=== PATIENT | female | born 1940 | race Caucasian/White ===

== ENCOUNTER 2018-04-11 11:10 | Emergency (ER) | payer MEDICARE ==
[~2018-04-11] VITALS: Ht 162.6 cm; Wt 57.2 kg
[2018-04-11 11:20] VITALS: BP 152/94
[2018-04-11 13:06] LABS: Basophils # (auto) 0 uL; Basophils % (auto) 0.5 % (0.0-2.0); Eosinophils # (auto) 0.1 uL; Eosinophils % (auto) 1.4 % (0.0-7.0); Hematocrit 44.1 % (36.0-46.0); Lymphocytes # (auto) 1.3 uL; Lymphocytes % (auto) 21.1 % (10.0-50.0); Mean Corpuscular Hemoglobin 32.1 pg (28.0-32.0); Mean Corpuscular Hgb Conc. 33.9 g/dL (32.0-36.0); Mean Corpuscular Volume 94.8 fL (80.0-100.0); Monocytes # (auto) 0.6 uL; Monocytes % (auto) 9.3 % (0.0-12.0); Neutrophils # (auto) 4.2 uL; Neutrophils % (auto) 67.7 % (37.0-80.0); Nucleated Red Blood Cells % 0.1 %; Platelet Count (auto) 252 10^3/uL (140-450); Red Blood Cells 4.65 10^6/uL (4.0-5.20); Red Cell Distribution Width 13.5 % (11.8-14.3); White Blood Cell 6.1 10^3/uL (4.4-10.8)
[2018-04-11 13:26] LABS: Alanine Aminotransferase 24 U/L (13-56); Albumin 4.3 g/dL (3.4-5.0); Anion Gap 7 (5-15); Blood Urea Nitrogen 14 mg/dL (7-18); Calcium 9.3 mg/dL (8.5-10.1); Carbon Dioxide 26 mmol/L (21-32); Chloride 103 mmol/L (98-107); Glucose 95 mg/dL (74-106); Potassium 4.1 mmol/L (3.5-5.1); Sodium 136 mmol/L (136-145)
[2018-04-11 13:31] LABS: Alkaline Phosphatase 50 U/L (45-117); Aspartate Aminotransferase 17 U/L (15-37); BUN/Creatinine Ratio 14.6; Bilirubin, Total 0.4 mg/dL (0.2-1.0); GFR African American > 60 mL/min; GFR Non-African American 60 mL/min; Total Protein 8.2 g/dL (6.4-8.2)
[2018-04-13] MEDS ORDERED: METO25TA62 (06:23)
[2018-04-14] MEDS ORDERED: DRON400T PO (10:34)
[2018-04-14] MEDS ORDERED: APIX5TAB PO (10:34)
== END 2018-04-11 17:20 | disposition left against medical advice (07) ==
LOC: ER 11:12
DX: I34.1 Nonrheumatic mitral (valve) prolapse (principal); I10 Essential (primary) hypertension
CPT/HCPCS: 36415; 71045; 80053; 84443; 84484; 85025; 93005

== ENCOUNTER 2019-09-20 16:45 | Inpatient (IN) | payer MEDICARE ==
[~2019-09-20] VITALS: Ht 162.6 cm; Wt 60.2 kg
[~2019-09-20 16:45] MED LIST: APIX5TAB PO; DRON400T PO; METO25TA93 PO
[2019-09-20 17:54] LABS: Basophils # (auto) 0 10 ^3/uL (0-0.2); Basophils % (auto) 0.5 % (0.0-2.0); Eosinophils # (auto) 0 10 ^3/uL (0-0.8); Eosinophils % (auto) 0.3 % (0.0-7.0); Hematocrit 39.8 % (36.0-46.0); Hemoglobin 13.6 g/dL (12.2-16.2); Lymphocytes # (auto) 0.9 10 ^3/uL (0.4-5.4); Mean Corpuscular Hemoglobin 32.2 pg (28.0-32.0); Mean Corpuscular Hgb Conc. 34.2 g/dL (32.0-36.0); Mean Corpuscular Volume 94.1 fL (80.0-100.0); Monocytes # (auto) 0.6 10 ^3/uL (0-1.3); Monocytes % (auto) 16.7 % (0.0-12.0); Neutrophils # (auto) 1.9 10 ^3/uL (1.6-8.6); Neutrophils % (auto) 55.5 % (37.0-80.0); Platelet Count (auto) 194 10^3/uL (140-450); Red Blood Cells 4.23 10^6/uL (4.0-5.20); Red Cell Distribution Width 13.5 % (11.8-14.3); White Blood Cell 3.4 10^3/uL (4.4-10.8)
[2019-09-20 18:07] LABS: INR 0.96 (0.9-1.15); Partial Thromboplastin Time 25.1 sec (23.64-32.05)
[2019-09-20 18:10] LABS: Albumin 4.3 g/dL (3.4-5.0); Anion Gap 8 (5-15); Blood Urea Nitrogen 11 mg/dL (7-18); Calcium 9.3 mg/dL (8.5-10.1); Carbon Dioxide 24 mmol/L (21-32); Chloride 106 mmol/L (98-107); Glucose 95 mg/dL (74-106); Potassium 4.1 mmol/L (3.5-5.1); Sodium 138 mmol/L (136-145)
[2019-09-20 18:15] LABS: Alanine Aminotransferase 42 U/L (13-56); Alkaline Phosphatase 45 U/L (45-117); Aspartate Aminotransferase 36 U/L (15-37); BUN/Creatinine Ratio 9.2; Bilirubin, Total 0.3 mg/dL (0.2-1.0); GFR African American 57 mL/min; GFR Non-African American 47 mL/min; Lactate Dehydrogenase 165 U/L (84-246)
[2019-09-20] MEDS ORDERED: ENOXAPARIN SOD 60 MG/0.6 ML SYRINGE SC ONE (20:45)
[2019-09-20] MEDS ORDERED: POTASSIUM CHL 20 Meq TABLET PO ONE (21:00)
[2019-09-20] MEDS ORDERED: MORPHINE SULF INJ 2 MG/ML SYRINGE 1ML IV PRN (22:00)
[2019-09-20] MEDS ORDERED: NITROGLYCERIN 0.4 MG SL TAB SL PRN (22:00)
[2019-09-20] MEDS ORDERED: ATORVASTATIN 20 MG TAB PO SCH (22:00)
[2019-09-20] MEDS: APIXABAN 5 MG TAB PO SCH (22:03)
[2019-09-20] MEDS: DRONEDARONE HCL 400 MG TAB PO SCH (22:04)
[2019-09-21] VITALS (8 sets, daily range): BP systolic 103–133; BP diastolic 66–80
[2019-09-21] MEDS: ACETAMINOPHEN 325 MG TAB PO PRN ×2 (02:50→10:56)
[2019-09-21] MEDS ORDERED: DOXYCYCLINE 100MG/250ML 250 ML IV SCH (03:00)
[2019-09-21 06:19] LABS: Basophils # (auto) 0 10 ^3/uL (0-0.2); Basophils % (auto) 0.8 % (0.0-2.0); Eosinophils # (auto) 0 10 ^3/uL (0-0.8); Eosinophils % (auto) 0.7 % (0.0-7.0); Hematocrit 36.7 % (36.0-46.0); Hemoglobin 12.6 g/dL (12.2-16.2); Lymphocytes % (auto) 30.7 % (10.0-50.0); Mean Corpuscular Hemoglobin 32.2 pg (28.0-32.0); Mean Corpuscular Hgb Conc. 34.3 g/dL (32.0-36.0); Mean Corpuscular Volume 93.8 fL (80.0-100.0); Monocytes # (auto) 0.4 10 ^3/uL (0-1.3); Monocytes % (auto) 11.8 % (0.0-12.0); Neutrophils # (auto) 1.9 10 ^3/uL (1.6-8.6); Nucleated Red Blood Cells % 0.1 %; Platelet Count (auto) 170 10^3/uL (140-450); Red Blood Cells 3.92 10^6/uL (4.0-5.20); Red Cell Distribution Width 13.4 % (11.8-14.3); White Blood Cell 3.3 10^3/uL (4.4-10.8)
[2019-09-21 06:37] LABS: Potassium 3.5 mmol/L (3.5-5.1)
[2019-09-21 06:44] LABS: Albumin 3.6 g/dL (3.4-5.0); BUN/Creatinine Ratio 14.1; Bilirubin, Total 0.2 mg/dL (0.2-1.0); Calcium 8.4 mg/dL (8.5-10.1); Total Protein 6.7 g/dL (6.4-8.2)
[2019-09-21] MEDS ORDERED: PROG1CAP2 PO (07:40)
[2019-09-21] MEDS ORDERED: CHOL50007 PO (07:40)
[2019-09-21] MEDS ORDERED: MELA3TAB27 PO (07:40)
[2019-09-21] MEDS ORDERED: PRAS1CAP PO (07:40)
[2019-09-21] MEDS ORDERED: BIOT10CA OR (07:40)
[2019-09-21] MEDS ORDERED: ASPI-407 PO (07:40)
[2019-09-21] MEDS: METOPROLOL SUCCINATE XL 50 MG TAB PO SCH (09:56)
[2019-09-21] MEDS: ASCORBIC ACID 1,000 MG TAB PO SCH (09:58)
[2019-09-21] MEDS: ZINC SULFATE 220mg CAP or TAB PO SCH (09:58)
[2019-09-21] MEDS: CHOLECALCIFEROL (VITD3) 1,000IU=25mCg TAB PO SCH (09:59)
[2019-09-21] MEDS: APIXABAN 5 MG TAB PO SCH ×2 (10:55→22:19)
[2019-09-21] MEDS: DRONEDARONE HCL 400 MG TAB PO SCH ×2 (10:55→22:34)
[2019-09-21] MEDS ORDERED: DexAMETHasone 4 MG TAB PO ONE (13:15)
[2019-09-21] MEDS ORDERED: PANTOPRAZOLE 40 MG TAB PO ONE (13:15)
[2019-09-21] MEDS ORDERED: FUROSEMIDE 20 MG/2 ML VIAL IV ONE (13:15)
[2019-09-21] MEDS ORDERED: POTASSIUM CHL 10 Meq TABLET PO ONE (13:15)
[2019-09-21] MEDS ORDERED: ONDANSETRON HCL 4 MG/2 ML VIAL IV PRN (13:45)
[2019-09-21] MEDS ORDERED: guaiFENesin-DM 100/10mg/5ml SYR PO PRN (14:00)
[2019-09-21] MEDS: ALBUTEROL SULF HFA 90MCG INH 200DOSE IN SCH ×2 (14:00→21:43)
[2019-09-21] MEDS ORDERED: SIMV10TA84 PO (14:47)
[2019-09-21] MEDS ORDERED: [UNRECOGNIZED DRUG - CODE] PO (14:52)
[2019-09-21] MEDS ORDERED: SIMV-8 PO (14:58)
[2019-09-21] MEDS ORDERED: ICOS1CAP PO (14:59)
[2019-09-21] MEDS: DOXYCYCLINE 100 MG TAB/CAP PO SCH ×2 (15:00→22:24)
[2019-09-21] MEDS ORDERED: POM PO (15:10)
[2019-09-21] MEDS: FUROSEMIDE 20 MG/2 ML VIAL IV SCH (17:29)
[2019-09-21] MEDS ORDERED: DexAMETHasone 4 MG TAB PO SCH (22:00)
[2019-09-21] MEDS: POTASSIUM CHL 10 Meq TABLET PO SCH (22:21)
[2019-09-21] MEDS: DexAMETHasone SOD PHOS 4 MG/1ML SDV INJ IV SCH (22:24)
[2019-09-21] MEDS: ATORVASTATIN 20 MG TAB PO SCH (22:25)
[2019-09-22] MEDS: FUROSEMIDE 20 MG/2 ML VIAL IV SCH ×2 (06:06→18:30)
[2019-09-22 06:11] VITALS: BP 117/73
[2019-09-22] MEDS: ALBUTEROL SULF HFA 90MCG INH 200DOSE IN SCH ×3 (06:12→22:02)
[2019-09-22 09:00] VITALS: BP 118/74
[2019-09-22] MEDS: DexAMETHasone SOD PHOS 4 MG/1ML SDV INJ IV SCH ×2 (09:51→22:02)
[2019-09-22] MEDS: DRONEDARONE HCL 400 MG TAB PO SCH ×2 (09:52→22:03)
[2019-09-22] MEDS: APIXABAN 5 MG TAB PO SCH ×2 (09:52→22:02)
[2019-09-22] MEDS: METOPROLOL SUCCINATE XL 50 MG TAB PO SCH (09:52)
[2019-09-22] MEDS: ZINC SULFATE 220mg CAP or TAB PO SCH (09:53)
[2019-09-22] MEDS: ASCORBIC ACID 1,000 MG TAB PO SCH (09:54)
[2019-09-22] MEDS: POTASSIUM CHL 10 Meq TABLET PO SCH ×2 (09:54→22:03)
[2019-09-22] MEDS: CHOLECALCIFEROL (VITD3) 1,000IU=25mCg TAB PO SCH (09:55)
[2019-09-22] MEDS: DOXYCYCLINE 100 MG TAB/CAP PO SCH ×2 (09:55→22:03)
[2019-09-22] MEDS ORDERED: POTASSIUM CHL 10 Meq TABLET PO SCH (10:00)
[2019-09-22] MEDS ORDERED: PANTOPRAZOLE 40 MG TAB PO SCH (10:00)
[2019-09-22] MEDS ORDERED: FUROSEMIDE 20 MG/2 ML VIAL IV SCH (10:00)
[2019-09-22 13:00] VITALS: BP 132/79
[2019-09-22 17:00] VITALS: BP 115/72
[2019-09-22 22:00] VITALS: BP 103/68
[2019-09-22] MEDS: ATORVASTATIN 20 MG TAB PO SCH (22:03)
[2019-09-23 05:00] VITALS: BP 116/75
[2019-09-23] MEDS: FUROSEMIDE 20 MG/2 ML VIAL IV SCH (06:01)
[2019-09-23] MEDS: ALBUTEROL SULF HFA 90MCG INH 200DOSE IN SCH (06:01)
[2019-09-23 06:12] LABS: Basophils # (auto) 0 10 ^3/uL (0-0.2); Basophils % (auto) 0.2 % (0.0-2.0); Eosinophils # (auto) 0 10 ^3/uL (0-0.8); Hematocrit 41.2 % (36.0-46.0); Lymphocytes # (auto) 0.6 10 ^3/uL (0.4-5.4); Lymphocytes % (auto) 9.5 % (10.0-50.0); Mean Corpuscular Hemoglobin 31.8 pg (28.0-32.0); Mean Corpuscular Volume 93.4 fL (80.0-100.0); Monocytes # (auto) 0.3 10 ^3/uL (0-1.3); Monocytes % (auto) 5.2 % (0.0-12.0); Neutrophils # (auto) 5.5 10 ^3/uL (1.6-8.6); Neutrophils % (auto) 85.1 % (37.0-80.0); Platelet Count (auto) 207 10^3/uL (140-450); Red Blood Cells 4.41 10^6/uL (4.0-5.20); Red Cell Distribution Width 13.3 % (11.8-14.3); White Blood Cell 6.5 10^3/uL (4.4-10.8)
[2019-09-23 06:34] LABS: BUN/Creatinine Ratio 21.8; Calcium 8.4 mg/dL (8.5-10.1); Magnesium 2.2 mg/dL (1.6-2.6); Potassium 4.1 mmol/L (3.5-5.1)
[2019-09-23 09:00] VITALS: BP 128/84
[2019-09-23 09:57] VITALS: BP 116/75
== END 2019-09-23 11:00 | disposition home or self-care (01) | DRG 177 ==
LOC: ER 16:45 → TELE 16:46 → TELE-EAST 23:45
PROVIDERS: ADMIT Nurse Practitioner; ATTEND Internal Medicine
DX: U07.1 COVID-19 (principal); J96.01 Acute respiratory failure with hypoxia; N17.0 Acute kidney failure with tubular necrosis; J12.89 Other viral pneumonia; N18.3 Chronic kidney disease, stage 3 (moderate); E87.6 Hypokalemia; I48.0 Paroxysmal atrial fibrillation; E78.5 Hyperlipidemia, unspecified; I12.9 Hypertensive chronic kidney disease with stage 1 through stage 4 chronic kidney disease, or unspecified chronic kidney disease; Z90.49 Acquired absence of other specified parts of digestive tract; Z79.899 Other long term (current) drug therapy
CPT/HCPCS: 36415; 71045; 80048; 80053; 82728; 83605; 83615; 83735; 83880; 84443; 84484; 85025; 85379; 85610; 85730; 86141; 87040; 87070; 87804; 87880; 93005; 94640; 96374; G0378; J1100; J2405

== ENCOUNTER → 2019-10-01 | Emergency (ER) | payer MEDICARE ==
[~2019-10-01] VITALS: Ht 162.6 cm; Wt 52.2 kg
[~2019-10-01] MED LIST changes: +ASPI-407 PO; +BIOT10CA OR; +CHOL50007 PO; +ICOS1CAP PO; +MELA3TAB27 PO; +POM PO; +PRAS1CAP PO; +PROG1CAP2 PO; +SIMV-8 PO; +[UNRECOGNIZED DRUG - CODE] PO
[2019-10-02 03:22] VITALS: BP 119/75
== END | disposition home or self-care (01) ==
LOC: EDUNIT# 17:01 → EDBD 17:44 → ER 17:45
DX: K59.00 Constipation, unspecified (principal); I10 Essential (primary) hypertension; E78.5 Hyperlipidemia, unspecified

== ENCOUNTER 2023-02-22 13:09 | Emergency (ER) | payer MEDICARE ==
[~2023-02-22] VITALS: Ht 157.5 cm; Wt 53.3 kg
[~2023-02-22 13:09] MED LIST changes: -PROG1CAP2 PO; +PROG200C21 PO; -SIMV-8 PO; +SIMV20TA20 PO
[2023-02-22 17:07] LABS: Basophils # (auto) 0 10 ^3/uL (0-0.2); Basophils % (auto) 0.4 % (0.0-2.0); Eosinophils # (auto) 0 10 ^3/uL (0-0.8); Eosinophils % (auto) 0.4 % (0.0-7.0); Hematocrit 43.2 % (36.0-46.0); Hemoglobin 14.3 g/dL (12.2-16.2); Lymphocytes # (auto) 3.1 10 ^3/uL (0.4-5.4); Lymphocytes % (auto) 32.9 % (10.0-50.0); Mean Corpuscular Hemoglobin 31.6 pg (28.0-32.0); Mean Corpuscular Hgb Conc. 33.2 g/dL (32.0-36.0); Mean Corpuscular Volume 95.1 fL (80.0-100.0); Monocytes # (auto) 0.8 10 ^3/uL (0-1.3); Monocytes % (auto) 8.5 % (0.0-12.0); Neutrophils # (auto) 5.4 10 ^3/uL (1.6-8.6); Neutrophils % (auto) 57.8 % (37.0-80.0); Nucleated Red Blood Cells % 0.1 %; Red Blood Cells 4.54 10^6/uL (4.0-5.20); Red Cell Distribution Width 13.5 % (11.8-14.3); White Blood Cell 9.4 10^3/uL (4.4-10.8)
[2023-02-22 17:56] LABS: Alanine Aminotransferase 14 U/L (7-40); Albumin 4.9 g/dL (3.2-4.8); Alkaline Phosphatase 46 U/L (46-116); Anion Gap 10 (5-15); Aspartate Aminotransferase < 8 U/L (13-40); BUN/Creatinine Ratio 13.1 (10.0-20.0); Blood Urea Nitrogen 13 mg/dL (9-23); Carbon Dioxide 23 mmol/L (20-30); Chloride 101 mmol/L (98-107); Glucose 87 mg/dL (74-106); Potassium 4.1 mmol/L (3.5-5.1); Sodium 134 mmol/L (136-145)
[2023-02-22 17:57] LABS: Bilirubin, Total 0.3 mg/dL (0.2-1.0); Total Protein 7.5 g/dL (5.7-8.2)
[2023-02-22] MEDS ORDERED: cefTRIAXone SOD 1,000 MG VL IM ONE (18:00)
[2023-02-22] MEDS ORDERED: DexAMETHasone SOD PHOS 4 MG/1ML SDV INJ IM ONE (18:00)
[2023-02-22] MEDS ORDERED: CLIN300C70 PO (19:16)
[2023-02-22] MEDS ORDERED: FLUT1SPR5 (19:16)
[2023-02-22] MEDS ORDERED: CARB6.5S44 OT (19:16)
[2023-02-22] MEDS ORDERED: LIDOCAINE 1% HCL (LOCAL ANESTH.) INJ 20ML MDV ONE (21:14)
[2023-02-22 21:20] VITALS: BP 115/64; PULSE 81; RESP 18; TEMP 98; O2SAT 96
== END 2023-02-22 21:33 | disposition home or self-care (01) ==
LOC: ER 13:09
DX: H70.93 Unspecified mastoiditis, bilateral (principal); H61.22 Impacted cerumen, left ear; R51.9 Headache, unspecified; J32.9 Chronic sinusitis, unspecified; I10 Essential (primary) hypertension; E78.5 Hyperlipidemia, unspecified; K21.9 Gastro-esophageal reflux disease without esophagitis; Z90.49 Acquired absence of other specified parts of digestive tract; Z79.82 Long term (current) use of aspirin; Z79.2 Long term (current) use of antibiotics; Z79.899 Other long term (current) drug therapy
CPT/HCPCS: 36415; 70450; 70486; 80053; 84484; 85025; 96372; 99285; J0696; J1100; J2001

== ENCOUNTER 2024-02-01 21:08 | Inpatient (IN) | payer MEDICARE ==
[~2024-02-01] VITALS: Ht 162.6 cm; Wt 53.8 kg
[~2024-02-01 21:08] MED LIST changes: +CARB6.5S44 OT; +CLIN1CAP70 PO; +FLUT1SPR5
--- NOTE | 2024-02-01 22:04 | ED.PDOC ---
HPI Comments A 83 year old female presents to the ED with a chief complaint of palpitations onset 4 days. Patient states she began experiencing palpitation 4 days ago and noticed it worsens when she tries to lay down. Patient went to the dentist today, was prescribed Amoxicillin, took 1000 mg around 18:00 and shortly after took Multaq and believes it caused her palpitations to worsen. She has a past medical history of HTN, HLD and A-fib. No other symptoms or modifying factor present at this time. Chief Complaint: Palpitations Time Seen by MD: 21:45 Primary Care Provider: unknown Reviewed Notes: Medications, Allergies Allergies: Coded Allergies: NO KNOWN ALLERGIES (Unverified , 12/30/12) Home Meds Active Scripts Fluticasone Propionate (Nasal) (Flonase Allergy Relief) 50 Mcg/Act Spr, 1 INH NA BID, #1 SPRAY Prov:MARIBEL LILLY INTERMODAL DISPATCHER 02/22/23 Carbamide Peroxide (Debrox) 6.5 % Mary, 6.5 % OT BID for 5 Days, #1 EA Instilled only on the left ear Prov:MARIBEL LILLY INTERMODAL DISPATCHER 02/22/23 Clindamycin Hcl (Clindamycin Hcl) 300 Mg Cap, 1 CAP PO TID for 10 Days, #30 CAP Prov:MARIBEL LILLY INTERMODAL DISPATCHER 02/22/23 Dronedarone Hydrochloride (Multaq) 400 Mg Tab, 400 MG PO BID, #60 TAB Prov:JIMBO ZARAGOZA MD 04/14/18 Apixaban Base (ELIQUIS) 5 Mg Tab, 5 MG PO BID for 30 Days, #60 TAB Prov:JIMBO ZARAGOZA MD 04/14/18 Reported Medications Patients Own Medication (PATIENTS OWN MEDICATION) ., 1.85 MG PO DAILY PTS OWN MED-OBTAIN FROM PT AND SEND TO RX DRUG: BIEST 1.85 MG CAP FREQ: 1.85 MG PO DAILY RX# EXP: DATE DISP: TECH: RPH: 09/21/19 Epa Ethyl Vashti (VASCEPA) 1 Gm Cap, 2 CAP PO BID, CAP 20 Simvastatin (Simvastatin) 20 Mg Tab, 1 TAB PO QPM, #30 TAB 5 Refills 09/21/19 Thyroid (Nature-Throid) 32.5 Mg Tab, 3 TAB PO DAILY, TAB 20 Prasterone (Dhea) (Dhea 25) 25 Mg Cap, 25 MG PO DAILY, CAP 09/21/19 Progesterone Micronized (PROGESTERONE) 200 Mg Cap, 200 MG PO QPM, CAP 09/21/19 Melatonin (KP MELATONIN) 3 Mg Tab, 1 TAB PO QPM, #30 TAB 2 Refills 09/21/19 Biotin (TOLU BIOTIN) 10 Mg Cap, 10 MG OR DAILY, CAP 09/21/19 Cholecalciferol (VITAMIN D3) 5,000 Unit Cap, 5000 UNIT PO DAILY, CAP 09/21/19 Aspirin (GIL ASPIRIN) 325 Mg Tab, 325 MG PO DAILY, TAB 09/21/19 Metoprolol Succinate (Metoprolol Succinate Er) 25 Mg Tab, 25 MG PO HS 04/13/18 Information Source: Patient Mode of Arrival: Ambulatory Severity: Moderate Timing: Days Duration: Since onset Prehospital treatment: None Cardiac Risk Factors: Hyperlipidemia, HTN Associated Signs and Symptoms: Palpitations Past Medical History PAST MEDICAL HISTORY: AFIB, High Lipids, HTN Surgical History: Appendectomy SPINNING MULE TENDER History: Denies all SPINNING MULE TENDER Hx Family History Family History: Reviewed,noncontributory to illness Social History Smoker: Non-Smoker Alcohol: Denies ETOH Use Drugs: Denies Drug Use Lives In: Home Constitutional: denies: chills, diaphoresis, fatigue, fever, malaise, sweats, weakness, others EENTM: denies: blurred vision, double vision, ear bleeding, ear discharge, ear drainage, ear pain, ear ringing, eye pain, eye redness, hearing loss, mouth pain, mouth swelling, nasal discharge, nose bleeding, nose congestion, nose pain, photophobia, tearing, throat pain, throat swelling, voice changes, others Respiratory: denies: cough, hemoptysis, orthopnea, SOB at rest, shortness of breath, SOB with excertion, stridor, wheezing, others Cardiovascular: reports: palpitations; denies: chest pain, dizzy spells, diaphoresis, Dyspnea on exertion, edema, irregular heart beat, left arm pain, lightheadedness, PND, syncope, others Gastrointestinal: denies: abdomen distended, abdominal pain, blood streaked bowels, constipated, diarrhea, dysphagia, difficulty swallowing, hematemesis, melena, nausea, poor appetite, poor fluid intake, rectal bleeding, rectal pain, vomiting, others Genitourinary: denies: abnormal vagina bleeding, burning, dyspareunia, dysuria, flank pain, frequency, hematuria, incontinence, pain, , vagina discharge, urgency, others Neurological: denies: dizziness, fainting, headache, left sided numbness, left sided weakness, numbness, paresthesia, pre-existing deficit, right sided numbness, right sided weakness, seizure, speech problems, tingling, tremors, weakness, others Musculoskeletal: denies: back pain, gout, joint pain, joint swelling, muscle pain, muscle stiffness, neck pain, others Integumetry: denies: bruises, change in color, change in hair/nails, dryness, laceration, lesions, lumps, rash, wounds, others Allergic/Immunocompromised: denies: Difficulty Healing, Frequent Infections, Hives, Itching, others Hematologic/Lymphatic: denies: anemia, blood clots, easy bleeding, easy bruising, swollen glands, others Endocrine: denies: excessive hunger, excessive sweating, excessive thirst, excessive urination, flushing, intolerance to cold, intolerance to heat, unexplained weight gain, unexplained weight loss, others Psychiatric: denies: anxiety, bipolar disorder, depression, hopeless, panic disorder, schizophrenia, sleepless, suicidal, others All Other Systems: Reviewed and Negative Physical Exam General Appearance: No Apparent Distress, Normal HEENT: Normal ENT Inspection, Pharynx Normal, TMs Normal Neck: Full Range of Motion, Non-Tender, Normal, Normal Inspection Respiratory: Chest Non-Tender, Lungs Clear, No Accessory Muscle Use, No Respiratory Distress, Normal Breath Sounds Cardiovascular: No Edema, No JVD, No Murmur, No Gallop, Normal Peripheral Pulses, Regular Rate/Rhythm Breast Exam: Deferred Gastrointestinal: No Organomegaly, Non Tender, No Pulsatile Mass, Normal Bowel Sounds, Soft Genitalia: Deferred Pelvic: Deferred Rectal: Deferred Extremities: No calf tenderness, Normal capillary refill, Normal inspection, Normal range of motion, Non-tender, No pedal edema Musculoskeletal : Apperance: Normal Neurologic: Alert, warehouse helper II-XII nml as Tested, No Motor Deficits, Normal Affect, Normal Mood, No Sensory Deficits Cerebellar Function: Normal Reflexes: Normal Skin: Dry, Normal Color, Warm Lymphatic: No Adenopathy Was a procedure done? Was a procedure done?: No CP Differential Dx Differential Diagnosis: Atrial Dysrhythmia, MAT, PAC's, PVC's Differential Diagnosis: HTN Essential Differential Diagnosis: Myocardial Infarction X-Ray, Labs, Meds, VS Vital Signs Date Time Temp Pulse Resp B/P (MAP) Pulse Ox O2 Delivery O2 Flow Rate FiO2 02/01/24 21:20 98.5 85 18 170/90 (116) 95 02/01/24 21:17 89 Lab Test 02/01/24 22:20 02/01/24 21:26 Range/Units Troponin I High Sensitivity 5 3 L </=34 ng/L White Blood Count 6.1 4.4-10.8 10^3/uL Red Blood Count 3.96 L 4.0-5.20 10^6/uL Hemoglobin 12.8 12.2-16.2 g/dL Hematocrit 37.2 36.0-46.0 % Mean Corpuscular Volume 93.9 80.0-100.0 fL Mean Corpuscular Hemoglobin 32.3 H 28.0-32.0 pg Mean Corpuscular Hemoglobin Concent 34.4 32.0-36.0 g/dL Red Cell Distribution Width 13.3 11.8-14.3 % Platelet Count 215 140-450 10^3/uL Mean Platelet Volume 9.3 6.9-10.8 fL Neutrophils (%) (Auto) 54.7 37.0-80.0 % Lymphocytes (%) (Auto) 31.4 10.0-50.0 % Monocytes (%) (Auto) 10.4 0.0-12.0 % Eosinophils (%) (Auto) 2.8 0.0-7.0 % Basophils (%) (Auto) 0.7 0.0-2.0 % Neutrophils # (Auto) 3.3 1.6-8.6 10 ^3/uL Lymphocytes # (Auto) 1.9 0.4-5.4 10 ^3/uL Monocytes # (Auto) 0.6 0-1.3 10 ^3/uL Eosinophils # (Auto) 0.2 0-0.8 10 ^3/uL Basophils # (Auto) 0 0-0.2 10 ^3/uL Nucleated Red Blood Cells 0.1 % Sodium Level 137 136-145 mmol/L Potassium Level 3.9 3.5-5.1 mmol/L Chloride Level 107 98-107 mmol/L Carbon Dioxide Level 24 20-31 mmol/L Anion Gap 6 5-15 Blood Urea Nitrogen 9 9-23 mg/dL Creatinine 0.75 0.550-1.02 mg/dL Glomerular Filtration Rate Calc 80 >90 mL/min BUN/Creatinine Ratio 12.0 10.0-20.0 Serum Glucose 90 74-106 mg/dL Calcium Level 9.8 8.7-10.4 mg/dL [place] [id number] Ph: [phone] DIAGNOSTIC IMAGING Diagnostic Imaging Report : [id number] Signed PATIENT: PIPPA DALTON ACCT: [id number] UNIT: [id number] : 1940 LOC: ER ROOM / BED: / AGE / SEX: 83 / F ADM STATUS: REG ER SERVICE 58 ORDERING PHYSICIAN: HAROLDO LEWIS MD PROCEDURE(s): CXRP - CHEST PORTABLE REASON: palpitations ORDER NUMBER(s): [id number], ACCESSION NUMBER(s): [id number] CHEST RADIOGRAPH Indication:palpitations Technique: Single frontal view of the chest was obtained Comparison: CHEST PORTABLE on DOS: 09/20/19 FINDINGS: Lines and Tubes: None Lungs: No focal consolidation. Pleura: No effusion. No pneumothorax. Cardiomediastinal contours: Unremarkable Bones: No acute osseous abnormality. IMPRESSION: No acute cardiopulmonary disease. ATED BY: DONNA BELTRAN DO DICTATED DATE/TIME: 02/01/242257 SIGNED BY: DONNA BELTRAN DO SIGNED DATE/TIME: 02/01/242257 CC: Time of 1ST Reevaluation: 22:15 Reevaluation 1ST: Unchanged Patient Education/Counseling: Diagnosis, Treatment, Prognosis Family Education/Counseling: No Family Present Departure 1 Departure Time of Disposition: 23:18 (Patient with worsening palpitations. We will admit patient for further workup.) Impression: Primary Impression: Palpitations Disposition: ADMITTED INPATIENT Admit to: Med Surg Condition: Serious Critical Care Note Critical Care Time?: No Stability Stability form required: No Heart Score Heart Score: Heart Score Response (Comments) Value History Moderate Suspicious 1 EKG Repolarization Disturb 1 Age >65 2 Risk Factors >3 or Hx ASHD 2 Troponin Normal limit 0 Total 6 I personally scribed for HAROLDO LEWIS MD ([email or web address]) on 02/01/24 at 22:04. Electronically submitted by Olga Campos ([email or web address]). I personally scribed for HAROLDO LEWIS MD ([email or web address]) on 02/01/24 at 23:16. Electronically submitted by Olga Campos ([email or web address]). HAROLDO LEWIS MD Feb 01, 2024 22:04
[2024-02-01 22:11] LABS: Basophils # (auto) 0 10 ^3/uL (0-0.2); Basophils % (auto) 0.7 % (0.0-2.0); Eosinophils # (auto) 0.2 10 ^3/uL (0-0.8); Eosinophils % (auto) 2.8 % (0.0-7.0); Hematocrit 37.2 % (36.0-46.0); Hemoglobin 12.8 g/dL (12.2-16.2); Lymphocytes # (auto) 1.9 10 ^3/uL (0.4-5.4); Lymphocytes % (auto) 31.4 % (10.0-50.0); Mean Corpuscular Hemoglobin 32.3 pg (28.0-32.0); Mean Corpuscular Hgb Conc. 34.4 g/dL (32.0-36.0); Mean Corpuscular Volume 93.9 fL (80.0-100.0); Monocytes # (auto) 0.6 10 ^3/uL (0-1.3); Monocytes % (auto) 10.4 % (0.0-12.0); Neutrophils # (auto) 3.3 10 ^3/uL (1.6-8.6); Neutrophils % (auto) 54.7 % (37.0-80.0); Nucleated Red Blood Cells % 0.1 %; Platelet Count (auto) 215 10^3/uL (140-450); Red Blood Cells 3.96 10^6/uL (4.0-5.20); Red Cell Distribution Width 13.3 % (11.8-14.3); White Blood Cell 6.1 10^3/uL (4.4-10.8)
[2024-02-01 22:21] LABS: Chloride 107 mmol/L (98-107); Potassium 3.9 mmol/L (3.5-5.1); Sodium 137 mmol/L (136-145)
[2024-02-01 22:22] LABS: Anion Gap 6 (5-15); Calcium 9.8 mg/dL (8.7-10.4); Carbon Dioxide 24 mmol/L (20-31)
[2024-02-01 22:27] LABS: Blood Urea Nitrogen 9 mg/dL (9-23); Glucose 90 mg/dL (74-106)
--- NOTE | 2024-02-01 23:00 | DVH ---
CHEST RADIOGRAPH Indication:palpitations Technique: Single frontal view of the chest was obtained Comparison: CHEST PORTABLE on DOS: 09/20/19 FINDINGS: Lines and Tubes: None Lungs: No focal consolidation. Pleura: No effusion. No pneumothorax. Cardiomediastinal contours: Unremarkable Bones: No acute osseous abnormality. IMPRESSION: No acute cardiopulmonary disease.
[2024-02-01 23:37] LABS: Urine Bacteria None Seen /hpf (None Seen)
[2024-02-01 23:52] LABS: Urine Blood Negative /uL (Negative); Urine Clarity Clear (Clear); Urine Color Colorless (Yellow); Urine Protein, UAD Negative (Negative); Urine Specific Gravity 1.005 (1.001-1.035); Urine Urobilinogen Normal (Negative); Urine WBC 29 /hpf (0 - 5)
[2024-02-02] MEDS ORDERED: NITROGLYCERIN 0.4 MG SL TAB SL PRN (03:45)
[2024-02-02] MEDS ORDERED: ACETAMINOPHEN 325 MG TAB PO PRN (03:45)
[2024-02-02] MEDS ORDERED: MORPHINE SULFATE INJ 2 MG/ml SYRG IV PRN (03:45)
[2024-02-02] MEDS ORDERED: ONDANSETRON HCL 4 MG/2 ML VIAL IV PRN (03:45)
--- NOTE | 2024-02-02 06:39 | DVHHP2 ---
History of Present Illness Reason for Visit: Palpitations History of Present Illness 83-year-old female presents for evaluation of palpitations. Patient reports a four day history of intermittent palpitations which are more noticeable whenever she tries to lay down. She reports mild shortness for breath. Denies chest pain. No other acute complaints reported. Past Medical History Hypertension, dyslipidemia and atrial fibrillation Past Surgical History Appendectomy Family History Noncontributory Smoke: No ALCOHOL: none Drugs: None Review of Systems Review of Systems Review of systems are currently negative otherwise addressed in HPI. Allergies: Coded Allergies: NO KNOWN ALLERGIES (Unverified , 12/30/12) Medications Current Medications Medications Dose Ordered Sig/Jesus Alberto Route Start Time Stop Time Status Last Admin Dose Admin Apixaban 2.5 mg BID PO 02/02/24 10:00 Metoprolol Succinate 25 mg HS PO 02/02/24 22:00 Atorvastatin Calcium 20 mg HS PO 02/02/24 22:00 Patient Own Medication 400 mg BID PO 02/02/24 10:00 UNV Ondansetron HCl 4 mg Q4HP PRN IV 02/02/24 03:45 Acetaminophen 650 mg Q6HP PRN PO 02/02/24 03:45 Nitroglycerin 0.4 mg Q5MINP PRN SL 02/02/24 03:45 Morphine Sulfate 2 mg Q30M PRN IV 02/02/24 03:45 Exam Vital Signs Vital Signs Date Time Temp Pulse Resp B/P (MAP) Pulse Ox O2 Delivery O2 Flow Rate FiO2 02/02/24 04:00 74 18 127/59 (81) 94 02/02/24 00:00 98.0 98.0 02/01/24 23:00 Room Air* 0 21 Exam Gen: 83-year-old female in no apparent distress Skin: Warm, dry, normal color and texture, no rash. HEENT: Normocephalic atraumatic, mucous membranes moist and pink. Neck: Cervical and supraclavicular nodes normal without enlargement, trachea is midline, thyroid gland is normal without masses. Pulmonary: Clear to auscultation and percussion bilaterally. Cardiac: Regular rate and rhythm. No murmur Abdomen: Soft, nontender, nondistended, bowel sounds present all 4 quadrants, no guarding, no rigidity, no organomegaly. Extremities: No cyanosis, clubbing, no edema Neuro: Cranial nerves II through XII grossly intact, normal affect and speech, no focal motor deficits. Labs/Xrays ORDERING PHYSICIAN: HAROLDO LEWIS MD PROCEDURE(s): CXRP - CHEST PORTABLE REASON: palpitations ORDER NUMBER(s): [id number], ACCESSION NUMBER(s): [id number] CHEST RADIOGRAPH Indication:palpitations Technique: Single frontal view of the chest was obtained Comparison: CHEST PORTABLE on DOS: 09/20/19 FINDINGS: Lines and Tubes: None Lungs: No focal consolidation. Pleura: No effusion. No pneumothorax. Cardiomediastinal contours: Unremarkable Bones: No acute osseous abnormality. IMPRESSION: No acute cardiopulmonary disease. Labs Test 02/02/24 04:45 02/01/24 23:18 02/01/24 22:20 02/01/24 21:26 Range/Units Thyroid Stimulating Hormone (TSH) 4.91 H 0.55-4.78 uIU/mL Urine Color Colorless Yellow Urine Clarity Clear Clear Urine pH 5.0 5.0-9.0 Urine Specific [place] 1.005 1.001-1.035 Urine Protein Negative Negative Urine Ketones Negative Negative Urine Blood Negative Negative /uL Urine Nitrite Negative Negative Urine Bilirubin Negative Negative Urine Urobilinogen Normal Negative mg/dL Urine Leukocyte Esterase 2+ Negative /uL Urine RBC 1 0 - 4 /hpf Urine WBC 29 0 - 5 /hpf Urine Squamous Epithelial Cells Few <5 /hpf Urine Bacteria None seen None Seen /hpf Urine Glucose Normal Normal mg/dL Troponin I High Sensitivity 5 </=34 ng/L White Blood Count 6.1 4.4-10.8 10^3/uL Red Blood Count 3.96 L 4.0-5.20 10^6/uL Hemoglobin 12.8 12.2-16.2 g/dL Hematocrit 37.2 36.0-46.0 % Mean Corpuscular Volume 93.9 80.0-100.0 fL Mean Corpuscular Hemoglobin 32.3 H 28.0-32.0 pg Mean Corpuscular Hemoglobin Concent 34.4 32.0-36.0 g/dL Red Cell Distribution Width 13.3 11.8-14.3 % Platelet Count 215 140-450 10^3/uL Mean Platelet Volume 9.3 6.9-10.8 fL Neutrophils (%) (Auto) 54.7 37.0-80.0 % Lymphocytes (%) (Auto) 31.4 10.0-50.0 % Monocytes (%) (Auto) 10.4 0.0-12.0 % Eosinophils (%) (Auto) 2.8 0.0-7.0 % Basophils (%) (Auto) 0.7 0.0-2.0 % Neutrophils # (Auto) 3.3 1.6-8.6 10 ^3/uL Lymphocytes # (Auto) 1.9 0.4-5.4 10 ^3/uL Monocytes # (Auto) 0.6 0-1.3 10 ^3/uL Eosinophils # (Auto) 0.2 0-0.8 10 ^3/uL Basophils # (Auto) 0 0-0.2 10 ^3/uL Nucleated Red Blood Cells 0.1 % Sodium Level 137 136-145 mmol/L Potassium Level 3.9 3.5-5.1 mmol/L Chloride Level 107 98-107 mmol/L Carbon Dioxide Level 24 20-31 mmol/L Anion Gap 6 5-15 Blood Urea Nitrogen 9 9-23 mg/dL Creatinine 0.75 0.550-1.02 mg/dL Glomerular Filtration Rate Calc 80 >90 mL/min BUN/Creatinine Ratio 12.0 10.0-20.0 Serum Glucose 90 74-106 mg/dL Calcium Level 9.8 8.7-10.4 mg/dL Assessment/Plan Assessment/Plan Assessment Palpitations History of atrial fibrillation Secondary coagulopathy Plan Admit the patient to telemetry to the hospitalist Cardiology consultation Echocardiogram pending Thyroid panel Resume home medications Continue treatment per orders. Plan discussed with: Patient My Orders Orders - DANNY ORTIZ Procedure Category Date Status Time * Cardiology Consult CONS 02/02/24 Transmitted 03:39 Metoprolol Xl PHA 02/02/24 In Process Succinate (Toprol Xl) 22:00 Atorvastatin (Lipitor) PHA 02/02/24 In Process 22:00 (Nf) Multaq PHA 02/02/24 Pending 10:00 Basic Metabolic Panel LAB 02/03/24 Verified 04:00 Admit ADMIT 02/02/24 Transmitted 03:39 Ondansetron Hcl PHA 02/02/24 In Process (Zofran) 03:45 Cardiac DIET 02/02/24 Transmitted Diet-2gna,Lofat,Lochol Breakfast Echo 2d Mode Cardiac US 02/02/24 Logged DOP 03:39 Condition: Fair [facility] 02/02/24 In Process 03:39 Acetaminophen Tablet PHA 02/02/24 In Process (Tylenol Tablet) 03:45 Bedrest With Bathroom [facility] 02/02/24 In Process Privileg 03:39 Nitroglycerin [facility] 02/02/24 In Process Sublingual (Ntrostat 03:45 Morphine Sulfate [facility] 02/02/24 In Process Injection 03:45 Stat Ekg For Chest [facility] 02/02/24 In Process Pain 03:39 Notify Md Of Changes [facility] 02/02/24 In Process From Base 03:39 Assembly Line Driver For [facility] 02/02/24 In Process 24 Hours 03:39 Emergency Dysrhythmia [facility] 02/02/24 In Process Protocol 03:39 Rhythm Strips Once [facility] 02/02/24 In Process Every Shift 03:39 Oxygen By Nasal RT 02/02/24 Transmitted Cannula 03:39 Apixaban (Eliquis) [facility] 02/02/24 In Process 10:00 Date of Service: Feb 02, 2024 Billing Provider: DANNY ORTIZ Common Visit Codes: [id number] INP/OBS CARE (HIGH) DANNY ORTIZ Feb 02, 2024 06:39
[2024-02-02 08:00] VITALS: PULSE 76
--- NOTE | 2024-02-02 09:37 | ECG ---
[facility] Test Date: 2024-02-01 Test Time: 21:17:18 Pat Name: PIPPA DLATON Department: ER Room: 0220T A Gender: F Watch [employer] Edge Grinder: IDRIS : 1940 Requested By: HAROLDO LEWIS Order Number: [id number] Reading MD: Jadiel Chan Measurements Intervals [place] Rate: 89 P: 0 NH: 0 QRS: 15 QRSD: 71 T: 38 QT: 385 QTc: 469 Interpretive Statements Atrial flutter Abnormal R-wave progression, early transition Electronically Signed On 02-03-2024 12:40:59 PST by Jadiel Chan Please click the below link to view image of tracing.
[2024-02-02] MEDS ORDERED: CYAN500T39 PO (10:03)
[2024-02-02] MEDS ORDERED: ASPI1TAB20 PO (10:03)
[2024-02-02] MEDS ORDERED: GABA-1308 PO (10:03)
[2024-02-02] MEDS ORDERED: PANT40TA2 PO (10:03)
[2024-02-02] MEDS ORDERED: VITA80005 PO (10:03)
[2024-02-02] MEDS ORDERED: SIMV20TA20 PO (10:03)
[2024-02-02] MEDS ORDERED: CHL4PW PO (10:03)
[2024-02-02] MEDS ORDERED: TEST1.62 TD (10:03)
[2024-02-02] MEDS ORDERED: METO25TA93 PO (10:03)
[2024-02-02] MEDS ORDERED: SERT50TA PO (10:03)
[2024-02-02] MEDS ORDERED: MENA100T PO (10:03)
[2024-02-02] MEDS ORDERED: CHOL500033 PO (10:03)
[2024-02-02] MEDS ORDERED: THYR30TA PO (10:03)
[2024-02-02 10:06] VITALS: BP 132/68; PULSE 78; RESP 17; TEMP 97.9; O2SAT 95
[2024-02-02] MEDS: DRONEDARONE HCL 400 MG TAB PO SCH (11:23)
[2024-02-02] MEDS: APIXABAN 2.5 MG TAB PO SCH (11:23)
--- NOTE | 2024-02-02 12:14 | DVHINCON2 ---
Date of service: Feb 03, 2024 History of Present Illness 83 yo F office pt of [facility] with pAF admitted for afib rvr. pt is now SR. she felt bad with mouth infection x 2 days and noticed rapid pulse. Past Medical History reviewed Family History: Alcoholism G8 MOTHER, Onset:Childhood G8 BROTHER, Onset:15's - 20 Arthritis G8 FATHER, Onset:60 years & older Asthma 19 CHILD, Onset:Childhood Cardiovascular disease Cerebrovascular accident (CVA) G8 FATHER, Onset:Unknown Ischemic heart disease Grandmother Allergies: Coded Allergies: NO KNOWN ALLERGIES (Unverified , 12/30/12) Home Meds Active Scripts Fluticasone Propionate (Nasal) (Flonase Allergy Relief) 50 Mcg/Act Spr, 1 INH NA BID, #1 SPRAY Prov:MARIBEL LILLY Q ENGAGEMENT LEAD 02/22/23 Carbamide Peroxide (Debrox) 6.5 % Mary, 6.5 % OT BID for 5 Days, #1 EA Instilled only on the left ear Prov:MARIBEL LILLY Q ENGAGEMENT LEAD 02/22/23 Clindamycin Hcl (Clindamycin Hcl) 300 Mg Cap, 1 CAP PO TID for 10 Days, #30 CAP Prov:MARIBEL LILLY Q ENGAGEMENT LEAD 02/22/23 Dronedarone Hydrochloride (Multaq) 400 Mg Tab, 400 MG PO BID, #60 TAB Prov:JIMBO ZARAGOZA MD 04/14/18 Apixaban Base (ELIQUIS) 5 Mg Tab, 5 MG PO BID for 30 Days, #60 TAB Prov:JIMBO ZARAGOZA MD 04/14/18 Reported Medications Cyanocobalamin (Vitamin B12) 500 Mcg Tab, 500 MCG PO DAILY, TAB 02/02/24 Vitamin A (Vitamin A) 8,000 Unit Cap, 08177 MCG PO DAILY, CAP 02/02/24 Menatetrenone (Menaquinone-4) (Vitamin K2) 100 Mcg Tab, 500 MCG PO DAILY, TAB 02/02/24 Testosterone (ANDROGEL PUMP) 1.62 % Gel, 2 % TD QWEEKLY, GEL 02/02/24 Cholecalciferol (Vitamin D-3) 5,000 Unit Cap, 10942 UNIT PO DAILY, CAP 02/02/24 Thyroid ([place] Thyroid) 30 Mg Tab, 1 TAB PO TID, #30 TAB 5 Refills 02/02/24 Pantoprazole Sodium Sesquihydr (Protonix) 40 Mg Tab, 40 MG PO PRN, #30 TAB 02/02/24 Aspirin (Aspir-81) 81 Mg Tab, 1 TAB PO DAILY, #30 TAB 5 Refills 02/02/24 Gabapentin (Gabapentin) 100 Mg Cap, 100 MG PO HS for 30 Days, MG 02/02/24 Metoprolol Succinate (Metoprolol Succinate Er) 25 Mg Tab, 17.5 MG PO DAILY, #30 TAB 5 Refills 02/02/24 Simvastatin (Simvastatin) 20 Mg Tab, 0.05 MG PO DAILY for 30 Days 02/02/24 Cholestyramine (QUESTRAN POWDER) 4 Gm Pw, 4 GM PO TID, POW 02/02/24 Sertraline Hcl (Zoloft) 50 Mg Tab, 1 TAB PO DAILY, #30 TAB 2 Refills 02/02/24 Prasterone (Dhea) (Dhea 25) 25 Mg Cap, 25 MG PO DAILY, CAP 09/21/19 Progesterone Micronized (PROGESTERONE) 200 Mg Cap, 200 MG PO QPM, CAP 09/21/19 Melatonin (KP MELATONIN) 3 Mg Tab, 1 TAB PO QPM, #30 TAB 2 Refills 09/21/19 Biotin (TOLU BIOTIN) 10 Mg Cap, 10 MG OR DAILY, CAP 09/21/19 Discontinued Reported Medications Patients Own Medication (PATIENTS OWN MEDICATION) ., 1.85 MG PO DAILY PTS OWN MED-OBTAIN FROM PT AND SEND TO RX DRUG: BIEST 1.85 MG CAP FREQ: 1.85 MG PO DAILY RX# EXP: DATE DISP: TECH: RPH: 09/21/19 Epa Ethyl Vashti (VASCEPA) 1 Gm Cap, 2 CAP PO BID, CAP 09/21/19 Simvastatin (Simvastatin) 20 Mg Tab, 1 TAB PO QPM, #30 TAB 5 Refills 09/21/19 Thyroid (Nature-Throid) 32.5 Mg Tab, 3 TAB PO DAILY, TAB 09/21/19 Cholecalciferol (VITAMIN D3) 5,000 Unit Cap, 5000 UNIT PO DAILY, CAP 09/21/19 Aspirin (GIL ASPIRIN) 325 Mg Tab, 325 MG PO DAILY, TAB 09/21/19 Metoprolol Succinate (Metoprolol Succinate Er) 25 Mg Tab, 25 MG PO HS 04/13/18 Current Medications Current Medications Medications (Trade) Dose Ordered Sig/Jesus Alberto Route PRN Reason Start Time Stop Time Status Last Admin Apixaban (Eliquis) 2.5 mg BID PO 02/02/24 10:00 02/02/24 11:23 Metoprolol Succinate (Toprol Xl) 25 mg HS PO 02/02/24 22:00 Atorvastatin Calcium (Lipitor) 20 mg HS PO 02/02/24 22:00 Dronedarone (MulTAQ) 400 mg BID PO 02/02/24 10:00 02/02/24 11:23 Ondansetron HCl (Zofran) 4 mg Q4HP PRN IV NAUSEA / VOMITING 02/02/24 03:45 Acetaminophen (Tylenol Tablet) 650 mg Q6HP PRN PO PAIN SCALE 1-3 OR TEMP>100.4 02/02/24 03:45 Nitroglycerin (Ntrostat Sublingual) 0.4 mg Q5MINP PRN SL FOR CHEST PAIN 02/02/24 03:45 Morphine Sulfate 2 mg Q30M PRN IV FOR CHEST PAIN 02/02/24 03:45 Review of Systems 10 pt ros otherwise negative Vital Signs Vital Signs Date Time Temp Pulse Resp B/P (MAP) Pulse Ox O2 Delivery O2 Flow Rate FiO2 02/02/24 10:06 97.9 78 17 132/68 (89) 95 97.9 02/01/24 23:00 Room Air* 0 21 Physical Exam nad s1 s2 rrr ctab soft nt/nd no edema Labs/Diagnostic Data Labs Test 02/02/24 04:45 02/01/24 23:18 02/01/24 22:20 02/01/24 21:26 Range/Units Thyroid Stimulating Hormone (TSH) 4.91 H 0.55-4.78 uIU/mL Urine Color Colorless Yellow Urine Clarity Clear Clear Urine pH 5.0 5.0-9.0 Urine Specific [place] 1.005 1.001-1.035 Urine Protein Negative Negative Urine Ketones Negative Negative Urine Blood Negative Negative /uL Urine Nitrite Negative Negative Urine Bilirubin Negative Negative Urine Urobilinogen Normal Negative mg/dL Urine Leukocyte Esterase 2+ Negative /uL Urine RBC 1 0 - 4 /hpf Urine WBC 29 0 - 5 /hpf Urine Squamous Epithelial Cells Few <5 /hpf Urine Bacteria None seen None Seen /hpf Urine Glucose Normal Normal mg/dL Troponin I High Sensitivity 5 </=34 ng/L White Blood Count 6.1 4.4-10.8 10^3/uL Red Blood Count 3.96 L 4.0-5.20 10^6/uL Hemoglobin 12.8 12.2-16.2 g/dL Hematocrit 37.2 36.0-46.0 % Mean Corpuscular Volume 93.9 80.0-100.0 fL Mean Corpuscular Hemoglobin 32.3 H 28.0-32.0 pg Mean Corpuscular Hemoglobin Concent 34.4 32.0-36.0 g/dL Red Cell Distribution Width 13.3 11.8-14.3 % Platelet Count 215 140-450 10^3/uL Mean Platelet Volume 9.3 6.9-10.8 fL Neutrophils (%) (Auto) 54.7 37.0-80.0 % Lymphocytes (%) (Auto) 31.4 10.0-50.0 % Monocytes (%) (Auto) 10.4 0.0-12.0 % Eosinophils (%) (Auto) 2.8 0.0-7.0 % Basophils (%) (Auto) 0.7 0.0-2.0 % Neutrophils # (Auto) 3.3 1.6-8.6 10 ^3/uL Lymphocytes # (Auto) 1.9 0.4-5.4 10 ^3/uL Monocytes # (Auto) 0.6 0-1.3 10 ^3/uL Eosinophils # (Auto) 0.2 0-0.8 10 ^3/uL Basophils # (Auto) 0 0-0.2 10 ^3/uL Nucleated Red Blood Cells 0.1 % Sodium Level 137 136-145 mmol/L Potassium Level 3.9 3.5-5.1 mmol/L Chloride Level 107 98-107 mmol/L Carbon Dioxide Level 24 20-31 mmol/L Anion Gap 6 5-15 Blood Urea Nitrogen 9 9-23 mg/dL Creatinine 0.75 0.550-1.02 mg/dL Glomerular Filtration Rate Calc 80 >90 mL/min BUN/Creatinine Ratio 12.0 10.0-20.0 Serum Glucose 90 74-106 mg/dL Calcium Level 9.8 8.7-10.4 mg/dL Assessment pAF htn HL Plan/Recommendation restart doac, agree with eliquis 2.5 mg cont multaq cont BB outpt holter after dc normal lvef on echo Plan discussed with: Patient NANCY HOLCOMB MD Feb 02, 2024 12:14
[2024-02-02] MEDS: INFLUENZA TRIVALENT 2024-2025 0.5 ML INJ IM ONE (12:15)
[2024-02-02] MEDS: PNEUMOCOCCAL VACC POLYS 25 MCG/0.5 ML VIAL IM ONE (12:15)
[2024-02-02 13:00] VITALS: BP 127/49; PULSE 63; RESP 16; TEMP 98.1; O2SAT 93
[2024-02-02 17:00] VITALS: BP 126/59; PULSE 81; RESP 16; TEMP 97.9; O2SAT 95
[2024-02-02 20:00] VITALS: PULSE 73; PULSE 79; RESP 18; O2SAT 95
[2024-02-02 21:00] VITALS: BP 139/66; PULSE 61; RESP 16; TEMP 97.9; O2SAT 94
[2024-02-02] MEDS: ATORVASTATIN 20 MG TAB PO SCH (21:35)
[2024-02-02] MEDS: METOPROLOL SUCCINATE XL 50 MG TAB PO SCH (21:40)
[2024-02-03] VITALS (7 sets, daily range): BP systolic 116–147; BP diastolic 58–82; PULSE 58–82; RESP 15–18; TEMP 97.4–98.2; O2SAT 93–96
[2024-02-03 07:13] LABS: Chloride 107 mmol/L (98-107); Sodium 137 mmol/L (136-145)
[2024-02-03 07:14] LABS: Anion Gap 7 (5-15); Calcium 9.5 mg/dL (8.7-10.4); Carbon Dioxide 23 mmol/L (20-31)
[2024-02-03 07:19] LABS: BUN/Creatinine Ratio 10.8 (10.0-20.0); Blood Urea Nitrogen 8 mg/dL (9-23); Glucose 99 mg/dL (74-106)
[2024-02-03 08:06] LABS: Thyroxine (T4) 7.6 ug/dL (4.5-12.0)
[2024-02-03 09:02] LABS: Hepatitis B Surface Antigen Negative (Negative)
[2024-02-03 09:07] LABS: Free Thyroxine Index 1.7 (1.2-4.9)
[2024-02-03 09:24] LABS: Hepatitis C Antibody Negative (Negative)
--- NOTE | 2024-02-03 11:10 | DVHPN2 ---
Objective Vitals Vital Signs Date Time Temp Pulse Resp B/P (MAP) Pulse Ox O2 Delivery O2 Flow Rate FiO2 02/03/24 09:00 97.6 82 17 116/75 (89) 96 97.6 02/02/24 20:00 Room Air* 0 21 Intake/Output Intake and Output 02/03/24 07:00 Intake Total 750 ml Balance 750 ml Intake Oral 750 ml # Voids 4 # Bowel Movements 4 Medications Current Medications Medications Dose Ordered Sig/Jesus Alberto Route Start Time Stop Time Status Last Admin Dose Admin Apixaban 2.5 mg BID PO 02/02/24 10:00 02/03/24 10:21 2.5 MG Metoprolol Succinate 25 mg HS PO 02/02/24 22:00 02/02/24 21:40 25 MG Atorvastatin Calcium 20 mg HS PO 02/02/24 22:00 02/02/24 21:35 20 MG Dronedarone 400 mg BID PO 02/02/24 10:00 02/03/24 10:21 400 MG Ondansetron HCl 4 mg Q4HP PRN IV 02/02/24 03:45 Acetaminophen 650 mg Q6HP PRN PO 02/02/24 03:45 Nitroglycerin 0.4 mg Q5MINP PRN SL 02/02/24 03:45 Morphine Sulfate 2 mg Q30M PRN IV 02/02/24 03:45 Laboratory Results Laboratory Tests 02/01/24 21:26 02/03/24 06:10 Chemistry Test 02/03/24 06:10 Calcium Level 9.5 mg/dL (8.7-10.4) Urinalysis Test 02/01/24 23:18 Urine Color Colorless (Yellow) Urine Clarity Clear (Clear) Urine pH 5.0 (5.0-9.0) Urine Specific [place] 1.005 (1.001-1.035) Urine Protein Negative (Negative) Urine Ketones Negative (Negative) Urine Blood Negative /uL (Negative) Urine Nitrite Negative (Negative) Urine Bilirubin Negative (Negative) Urine Urobilinogen Normal mg/dL (Negative) Urine Leukocyte Esterase 2+ /uL (Negative) Urine RBC 1 /hpf (0 - 4) Urine WBC 29 /hpf (0 - 5) Urine Squamous Epithelial Cells Few /hpf (<5) Urine Bacteria None seen /hpf (None Seen) Urine Glucose Normal mg/dL (Normal) VANNESSA MAHARAJ MD Feb 03, 2024 11:10
--- NOTE | 2024-02-03 16:26 | DVHSR ---
APPROVED REPORT EXAM: Two-dimensional and M-mode echocardiogram with Doppler and color Doppler. Blood Pressure: 120/69 mmHg INDICATION Palpitations RISK FACTORS Height: 64, Weight: 117 DIMENSIONS LVDd (3.8-5.7cm)LA (2D)4.2 (1.9-4.0cm)Aortic Root (2.0-3.7cm) EF (%) 63.0 (55-70%)Rt. Atrium3.3 (1.9-4.0cm)Asc. Aorta cm Mitral Valve MitralMitral Stenosis E wave0.74m/sMV Mean GR.mmHg A wave0.87m/sMV Peak GR.mmHg E/A ratio0.92D MVAcm2 DECEL [id number] 1/2 [id number] IVRTmsDop MVA1.98cm2 Aortic Valve Aortic ValveAortic Stenosis V11.05m/Suraj Mean GR.3mmHg V21.29m/Suraj Peak GR.7mmHg AI P 1/2 Qqhw683.35ms Other Information Technically limited study due to patient has breast implants. Conclusion lvef 60% by visual assessment nromal rv function left atrium enlarged
[2024-02-03] MEDS: THYROID 60 MG TAB PO SCH (22:03)
[2024-02-04 01:00] VITALS: BP 141/68; PULSE 74; RESP 18; TEMP 97.5; O2SAT 95
[2024-02-04 05:00] VITALS: BP 112/62; PULSE 63; RESP 18; TEMP 98.1; O2SAT 95
[2024-02-04 08:00] VITALS: PULSE 69; RESP 14; O2SAT 92
[2024-02-04 09:00] VITALS: BP 135/69; PULSE 65; RESP 16; TEMP 97.4; O2SAT 95
--- NOTE | 2024-02-04 11:43 | DVHPN2 ---
Progress Note Date Seen: Feb 04, 2024 Medical Necessity Reason Pt with a Central, PICC or Fol: No Subjective Patient reports: Feels better Other Systems: SR on tele Objective vital signs Vital Sign Date Time Temp Pulse Resp B/P (MAP) Pulse Ox O2 Delivery O2 Flow Rate FiO2 02/04/24 08:00 69 02/04/24 08:00 14 92 Room Air* 0 21 02/04/24 05:00 98.1 112/62 (79) 98.1 Total Intake and Output 02/03/24 02/03/24 02/04/24 15:00 23:00 07:00 Intake Total 1036 ml 0 ml Balance 1036 ml 0 ml medications Current Medications Medications Dose Ordered Sig/Jesus Alberto Route Start Time Stop Time Status Last Admin Dose Admin Apixaban 2.5 mg BID PO 02/02/24 10:00 02/04/24 09:24 2.5 MG Metoprolol Succinate 25 mg HS PO 02/02/24 22:00 02/03/24 22:07 25 MG Atorvastatin Calcium 20 mg HS PO 02/02/24 22:00 02/03/24 22:05 20 MG Dronedarone 400 mg BID PO 02/02/24 10:00 02/04/24 09:24 400 MG Ondansetron HCl 4 mg Q4HP PRN IV 02/02/24 03:45 Acetaminophen 650 mg Q6HP PRN PO 02/02/24 03:45 Nitroglycerin 0.4 mg Q5MINP PRN SL 02/02/24 03:45 Morphine Sulfate 2 mg Q30M PRN IV 02/02/24 03:45 Thyroid 30 mg TID PO 02/03/24 22:00 02/04/24 05:43 30 MG Examination: GENERAL:Abnormal, LUNGS:Abnormal, CVS:Abnormal, ABDOMEN:Abnormal laboratory and microbiology Laboratory Tests 02/03/24 06:10 02/01/24 21:26 Test 02/03/24 06:10 Range/Units Serum Glucose 99 74-106 mg/dL Problem List/Assessment/Plan Problem List/Assessment/Plan afib htn HL recommend multaq and BB doac started now dc home today fu with me in 3 weeks Plan discussed with: Patient Date of Service: Feb 04, 2024 Billing Provider: NANCY HOLCOMB MD Common Visit Codes: NOT BILLABLE NANCY HOLCOMB MD Feb 04, 2024 11:43
--- NOTE | 2024-02-04 11:55 | DVHPN2 ---
Objective Vitals Vital Signs Date Time Temp Pulse Resp B/P (MAP) Pulse Ox O2 Delivery O2 Flow Rate FiO2 02/04/24 08:00 69 02/04/24 08:00 14 92 Room Air* 0 21 02/04/24 05:00 98.1 112/62 (79) 98.1 Intake/Output Intake and Output 02/04/24 07:00 Intake Total 1036 ml Balance 1036 ml Intake Oral 1036 ml # Voids 2 Medications Current Medications Medications Dose Ordered Sig/Jesus Alberto Route Start Time Stop Time Status Last Admin Dose Admin Apixaban 2.5 mg BID PO 02/02/24 10:00 02/04/24 09:24 2.5 MG Metoprolol Succinate 25 mg HS PO 02/02/24 22:00 02/03/24 22:07 25 MG Atorvastatin Calcium 20 mg HS PO 02/02/24 22:00 02/03/24 22:05 20 MG Dronedarone 400 mg BID PO 02/02/24 10:00 02/04/24 09:24 400 MG Ondansetron HCl 4 mg Q4HP PRN IV 02/02/24 03:45 Acetaminophen 650 mg Q6HP PRN PO 02/02/24 03:45 Nitroglycerin 0.4 mg Q5MINP PRN SL 02/02/24 03:45 Morphine Sulfate 2 mg Q30M PRN IV 02/02/24 03:45 Thyroid 30 mg TID PO 02/03/24 22:00 02/04/24 05:43 30 MG Laboratory Results Laboratory Tests 02/01/24 21:26 02/03/24 06:10 Urinalysis Test 02/01/24 23:18 Urine Color Colorless (Yellow) Urine Clarity Clear (Clear) Urine pH 5.0 (5.0-9.0) Urine Specific [place] 1.005 (1.001-1.035) Urine Protein Negative (Negative) Urine Ketones Negative (Negative) Urine Blood Negative /uL (Negative) Urine Nitrite Negative (Negative) Urine Bilirubin Negative (Negative) Urine Urobilinogen Normal mg/dL (Negative) Urine Leukocyte Esterase 2+ /uL (Negative) Urine RBC 1 /hpf (0 - 4) Urine WBC 29 /hpf (0 - 5) Urine Squamous Epithelial Cells Few /hpf (<5) Urine Bacteria None seen /hpf (None Seen) Urine Glucose Normal mg/dL (Normal) Assessment/Plan My Orders Orders - VANNESSA MAHARAJ MD Procedure Category Date Status Time Thyroid ([facility] 02/03/24 In Process Thyroid) 22:00 VANNESSA MAHARAJ MD Feb 04, 2024 11:55
--- NOTE | 2024-02-04 12:58 | DVHDS2 ---
Discharge Summary Date of Admission Feb 02, 2024 at 03:43 Date of Discharge: Feb 04, 2024 Labs/Diagnostic Data: Laboratory Results Test 02/03/24 06:10 02/02/24 13:25 02/02/24 04:45 02/01/24 23:18 Sodium Level 137 mmol/L (136-145) Potassium Level 4.0 mmol/L (3.5-5.1) Chloride Level 107 mmol/L (98-107) Carbon Dioxide Level 23 mmol/L (20-31) Anion Gap 7 (5-15) Blood Urea Nitrogen 8 mg/dL (9-23) Creatinine 0.74 mg/dL (0.550-1.02) Glomerular Filtration Rate Calc 81 mL/min (>90) BUN/Creatinine Ratio 10.8 (10.0-20.0) Serum Glucose 99 mg/dL (74-106) Calcium Level 9.5 mg/dL (8.7-10.4) Hepatitis B Surface Antigen Negative (Negative) Hepatitis C Antibody Negative (Negative) Thyroid Stimulating Hormone (TSH) 4.91 uIU/mL (0.55-4.78) Free Thyroxine Index 1.7 (1.2-4.9) Thyroxine (T4) 7.6 ug/dL (4.5-12.0) Triiodothyronine (T3) Uptake 23 % (24-39) Urine Color Colorless (Yellow) Urine Clarity Clear (Clear) Urine pH 5.0 (5.0-9.0) Urine Specific [place] 1.005 (1.001-1.035) Urine Protein Negative (Negative) Urine Ketones Negative (Negative) Urine Blood Negative /uL (Negative) Urine Nitrite Negative (Negative) Urine Bilirubin Negative (Negative) Urine Urobilinogen Normal mg/dL (Negative) Urine Leukocyte Esterase 2+ /uL (Negative) Urine RBC 1 /hpf (0 - 4) Urine WBC 29 /hpf (0 - 5) Urine Squamous Epithelial Cells Few /hpf (<5) Urine Bacteria None seen /hpf (None Seen) Urine Glucose Normal mg/dL (Normal) Test 02/01/24 22:20 02/01/24 21:26 Troponin I High Sensitivity 5 ng/L (</=34) White Blood Count 6.1 10^3/uL (4.4-10.8) Red Blood Count 3.96 10^6/uL (4.0-5.20) Hemoglobin 12.8 g/dL (12.2-16.2) Hematocrit 37.2 % (36.0-46.0) Mean Corpuscular Volume 93.9 fL (80.0-100.0) Mean Corpuscular Hemoglobin 32.3 pg (28.0-32.0) Mean Corpuscular Hemoglobin Concent 34.4 g/dL (32.0-36.0) Red Cell Distribution Width 13.3 % (11.8-14.3) Platelet Count 215 10^3/uL (140-450) Mean Platelet Volume 9.3 fL (6.9-10.8) Neutrophils (%) (Auto) 54.7 % (37.0-80.0) Lymphocytes (%) (Auto) 31.4 % (10.0-50.0) Monocytes (%) (Auto) 10.4 % (0.0-12.0) Eosinophils (%) (Auto) 2.8 % (0.0-7.0) Basophils (%) (Auto) 0.7 % (0.0-2.0) Neutrophils # (Auto) 3.3 10 ^3/uL (1.6-8.6) Lymphocytes # (Auto) 1.9 10 ^3/uL (0.4-5.4) Monocytes # (Auto) 0.6 10 ^3/uL (0-1.3) Eosinophils # (Auto) 0.2 10 ^3/uL (0-0.8) Basophils # (Auto) 0 10 ^3/uL (0-0.2) Nucleated Red Blood Cells 0.1 % Other Laboratory Tests 02/03/24 06:10 02/01/24 21:26 Final Diagnosis/Problems List afib Discharge Disposition: Home Discharge Instruct/Medications Diet: Cardiac 2g Na,low cholest Activity: No Restrictions, As Tolerated Follow Up/Referral: pcp 1-[address] 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 Patient was counseled about treatment plan, medications, possible side effects, patientverbalized understanding. All questions were answered to the best of my ability. This discharge took greater then 30 minutes in planning, reviewing documentation, counseling the patient, and discussing with other team members." ASSESSMENT ASSESSMENT Assessment VANNESSA Tomlinson MD Feb 04, 2024 12:58
[2024-02-04 13:00] VITALS: BP 129/51; PULSE 70; RESP 16; TEMP 97.8; O2SAT 96
[2024-02-04 15:09] VITALS: BP 135/69; PULSE 65; RESP 18; TEMP 97.4; O2SAT 95
== END 2024-02-04 17:20 | disposition home or self-care (01) | DRG 310 ==
LOC: ER 21:08 → TELE-CENTR 02-02 03:43 → TELE 02-02 03:43 → TELE-CENTR 02-02 09:14
PROVIDERS: ADMIT Nurse Practitioner; ATTEND Internal Medicine
DX: I48.0 Paroxysmal atrial fibrillation (principal); I10 Essential (primary) hypertension; E78.5 Hyperlipidemia, unspecified; Z79.01 Long term (current) use of anticoagulants; Z82.5 Family history of asthma and other chronic lower respiratory diseases; Z82.49 Family history of ischemic heart disease and other diseases of the circulatory system; Z82.3 Family history of stroke; Z79.899 Other long term (current) drug therapy
CPT/HCPCS: 36415; 71045; 80048; 81001; 84443; 84484; 85025; 86803; 87340; 93005; 93306; G0378